=== PATIENT | female | born 1930 | race Caucasian/White ===

== ENCOUNTER 2016-12-24 17:32 | Emergency (ER) | payer MEDICARE, OTHER ==
[~2016-12-24] VITALS: Ht 152.4 cm; Wt 55.0 kg
[~2016-12-24 17:32] MED LIST: AMLODIPINE BESY10 MG PO; AMLODIPINE5 MG PO; AZITHROMYCIN500 MG PO; BACTRIM DS1 TAB PO; BACTROBAN TOP; CARVEDILOL25 MG PO; CEPHALEXIN500 MG PO; CLARITIN5 MG PO; CLINDAMYCIN150 MG PO; COUMADIN1 MG PO; COUMADIN2 MG PO; COUMADIN2.5 MG PO; COUMADIN3 MG PO; FLONASE NASAL50 MCG; FLUARIX QUADRIV1 INJ IM; KEFLEX500 MG PO; LASIX 20 MG TAB20 MG PO; LEVOTHYROXIN50 MCG PO; LORATADINE10 M1 PO; LORTAB 5/3255 MG PO; MAG OXIDE400 MG PO; MAGNESIUM-OX400 MG PO; MICARDIS80 MG PO; MICRO-K10 MEQ PO; NEXIUM40 M1 PO; NITROFURANTN100 M2 PO; NITROFURANTN100 MG PO; PRAVACHOL40 MG PO; PRAVASTATIN SOD20 MG PO; PROBIOTIC1 TAB PO; SILVADENE1 % EX; SYNTHROID50 MCG PO; TESSALON PER100 MG PO; TYLENOL # 31 TAB PO; ULTRAM50 M1 PO; VALIUM5 MG PO; ZITHROMAX500 MG PO; ZOFRAN4 M1 PO; ZOVIRAX51 TOP
[2016-12-24] MEDS ORDERED: ULTRAM50 M1 PO (18:42)
[2016-12-24 19:14] VITALS: BP 149/69
== END 2016-12-24 19:15 | disposition home or self-care (01) ==
LOC: ED 17:32
DX: S90.32XA Contusion of left foot, initial encounter (principal); E03.9 Hypothyroidism, unspecified; I25.10 Atherosclerotic heart disease of native coronary artery without angina pectoris; E78.5 Hyperlipidemia, unspecified; G89.29 Other chronic pain; M54.9 Dorsalgia, unspecified; I48.91 Unspecified atrial fibrillation; Z95.0 Presence of cardiac pacemaker; W22.8XXA Striking against or struck by other objects, initial encounter; Y92.512 Supermarket, store or market as the place of occurrence of the external cause